=== PATIENT | female | born 1955 | race Caucasian/White ===

== ENCOUNTER 2016-06-10 11:30 | Inpatient (IN) | payer MEDICAID ==
[~2016-06-10] VITALS: Ht 170.2 cm; Wt 130.3 kg
--- NOTE | ~2016-06-10 | ECH ---
Transthoracic Echocardiography Report (TTE) Demographics Patient Name JC CAMARGO Date of Study 06/11/2016 Patient Number [id number] Visit Number [id number] Date of 1955 Room Number 404 Accession Number [id number] Gender Female Age 60 year(s) Referring Nicko BUTLER Equipment Lead Cata Yin RUST Physician Jimbo Allen MD Physician Interpreting Kurt [employer] Product Engineer Physician MD Supervising Ordering Physician Reyes Allen MD, MD/P Nurse Stress Application Support Manager Conclusions Summary Technically fair exam. The estimated left ventricular ejection fraction is 60%. Moderate left ventricular hypertrophy. Bubble study was done, there is no evidence for a PFO or ASD. The right atrium is mildly dilated. There is mild aortic stenosis by the Continuity Equation. The peak velocity is 3.14m/s, the mean gradient is 22mmHg, and the valve area based on the continuity equation is 1.5cm2, stroke volume index is 38.6ml/m2. Mild tricuspid regurgitation by color Doppler. There is moderate pulmonary hypertension. The pulmonary pressure (RVSP) is 63 mmHg. The ascending aorta appears mildly dilated. The maximum diameter measures 3.5 cm. Procedure Type of Study TTE procedure:Echo Complete w Contrast SF. Procedure Date Date: 06/11/2016 Start: 09:42 AM Technical Quality: Fair due to body habitus. Indications:Shortness of breath, Pulmonary hypertension and Congestive heart failure. Additional Indications:hypoxia Appropriate Use Criteria: 9 Contrast Medium: Bubble Study. Height: 67 inches Weight: 290 pounds BSA: 2.37 m Rhythm: Within normal limits HR: 67 bpm BP: 116/53 mmHg M-Mode/2D Measurements LV Diastolic Dimension: 3.94 cm LV Systolic Dimension: 2.37 cm LV Septum Diastolic: 1.39 cm LV PW Diastolic: 1.91 cm AO Root Dimension: 2.68 cm Cardiac Output: 6.13 l/min LA Dimension: 4.57 cm Cardiac Index: 2.59 l/min*m RV Diastolic Dimension: 3.85 cm LA volume index: 29 ml/m LVOT: 1.86 cm LVOT VTI: 33.71 cm RV Base: 4.5 cm LV Stroke volume: 91.55 ml RV Mid: 3 cm LV Stroke volume index: 38.63 ml/m RV Length: 7.7 cm Doppler Measurements AV Peak Velocity: 3.14 m/s MV Peak E-Wave: 1.31 m/s AV Peak Gradient: 39.44 mmHg MV Peak A-Wave: 1.14 m/s AV Mean Gradient: 22.37 mmHg MV E/A Ratio: 1.14 LVOT Peak Velocity: 1.46 m/s MV P1/2t: 88.1 msec AV Area (Continuity):1.51 cm MV Deceleration Time: 303.8 msec TR Velocity:3.81 m/s MV Area (PHT): 2.5 cm TR Gradient:58.17 mmHg Estimated RAP:5 mmHg Estimated PASP: 63.17 mmHg Estimated RVSP: 63 mmHg RA Area: 18.58 cm Findings Left Ventricle The left ventricle is normal in size . Moderate to severe left ventricular hypertrophy. Diastolic assessment reveals normal relaxation. Right Ventricle Normal right ventricle structure and function. Left Atrium Normal left atrial size. Bubble study was done, there is no evidence for a PFO or ASD. Right Atrium The right atrium is mildly dilated. Mitral Valve Normal mitral valve structure and function. Mild mitral regurgitation by color Doppler. Mild mitral annular calcification. Aortic Valve The aortic valve was not well imaged but appears sclerotic. There is mild aortic stenosis by the Continuity Equation. The peak velocity is 3.14m/s, the mean gradient is 22mmHg, and the valve area based on the continuity equation is 1.5cm2, stroke volume index is 38.6ml/m2. Tricuspid Valve Normal tricuspid valve structure and function. Mild tricuspid regurgitation by color Doppler. There is moderate pulmonary hypertension. The pulmonary pressure (RVSP) is 63 mmHg. Pulmonic Valve The pulmonic valve is not well visualized. Pericardial Effusion No evidence of pericardial effusion. Miscellaneous The ascending aorta appears mildly dilated. The maximum diameter measures 3.5 cm. Pleural Effusion No evidence of pleural effusion. Contractility Score LV regional wall motion:(0-Non visualized 1-Normal 2-Hypokinesis 3-Akinesis 4-Dyskinesis 5-Aneurysm) Signature
[~2016-06-10 11:30] MED LIST: ALDACTONE DPS25 MG PO; APRESOLINE DPS100 MG PO; BENADRYL-DPS50 MG PO; CATAPRES0.3 MG PO; DEMADEX20 MG PO; IMDUR DPS60 MG PO; JANUVIA100 MG PO; LANTUS100 UNITS/ SQ; LOPRESSOR DPS100 MG PO; MAALOX DPS30 ML PO; MICRONASE DPS5 MG PO; NORVASC DPS10 MG PO; PRAVACHOL40 MG PO; SURFAK DPS240 MG PO; TEARS NATURAL D15 ML OU; TYLENOL DPS325 MG PO; TYLENOL EXTRA500 M1 PO
[2016-06-17] MEDS ORDERED: SENOKOT DPS8.6 MG PO (16:54)
[2016-06-17] MEDS ORDERED: ROBITUSSIN100 MG/5 M PO (16:55)
[2016-06-17] MEDS ORDERED: LEVAQUIN DPS500 MG PO (16:56)
[2016-06-17] MEDS ORDERED: DULERA 100/58.8 GM IH (16:56)
[2016-06-17] MEDS ORDERED: NORVASC DPS10 MG PO (16:56)
[2016-06-17] MEDS ORDERED: DELTASONE20 MG PO (16:57)
[2016-06-17] MEDS ORDERED: DELTASONE DPS10 MG PO ×2 (16:57→16:58)
[2016-06-17] MEDS ORDERED: DUONEB DPS3 ML IH (16:57)
--- NOTE | 2016-06-24 12:30 | HP ---
ADMIT: 06/10/2016 RM/LOC: 404 [facility] MR#: [id number] [address] [place], [place] [address] JC CAMARGO [address] [place] [address] History and Physical SEX: F AGE: 60 : 1955 DATE OF SERVICE: CHIEF COMPLAINT: Shortness of breath and hypoxia. HISTORY OF PRESENT ILLNESS: The patient is a 60-year-old single white female, followed in the [facility], who presented with shortness of breath for the last 4-5 days with just generalized fatigue. She denies any chest pain, palpitations. Denies any cough, fevers, chills, sputum production, or infectious symptoms. She does state she is short of breath. PAST MEDICAL HISTORY: Includes eye surgeries for cataracts, retinal detachment, back surgery in 1979, EGDs, 4 upper GI bleed along with diabetic retinopathy surgeries. Illnesses include congestive heart failure which is chronic diastolic, benign essential hypertension, hyperlipidemia, degenerative joint disease of lumbosacral spine, sleep apnea, managed with CPAP, obesity, retinal neovascularization, and diabetes mellitus type 2 with diabetic retinopathy. MEDICATIONS: On admission include: 1. Lantus 40 units daily. 2. Torsemide 20 mg b.i.d. 3. Spironolactone 50 mg daily. 4. Amlodipine 10 mg daily. 5. Catapres 0.3 mg b.i.d. 6. Glyburide 5 mg b.i.d. 7. Hydralazine 100 mg t.i.d. 8. Isordil extended release 60 mg daily. 9. Januvia 100 mg daily. 10.Lopressor 100 mg b.i.d. 11.Pravachol 40 mg at bedtime along with Natural Tears. 12.PRN Surfak and Benadryl. ALLERGIES: INCLUDE DARVOCET AND PENICILLIN. SOCIAL HISTORY: Is that of a 60-year-old, disabled white female. She is single, never been , has no children. She does not smoke and has never smoked or drank significant alcohol. REVIEW OF SYSTEMS: Remarkable for chronic eye problems, her morbid exogenous obesity, her chronic dyspnea, and some chronic arthritis in her back. Remainder of review of systems is negative. PHYSICAL EXAMINATION: VITAL SIGNS: Include blood pressure of 132/62, weight of 289 pounds, pulse of 79. Note her weight 3 months ago was 288. O2 saturation was 79% on room air. Multiple attempts were noted. Highest O2 saturation obtained was 82%. Heart rate was 79, temperature 97.9, with a height of 66 inches, and a BMI of 46.6. GENERAL: Exam shows her to be alert. She is in no acute distress. HEENT: Pupils are reactive. Membranes are moist. ADMIT: 06/10/2016 RM/LOC: 404 [facility] MR#: [id number] [address] [address] [facility] [address] [place] [address] History and Physical SEX: F AGE: 60 : 1955 NECK: Supple. HEART: Regular without murmur. LUNGS: Clear with diminished breath sounds, poor inspiratory effort. ABDOMEN: Morbidly obese and nontender. BREASTS: Deferred. GENITOURINARY: Deferred. RECTAL: Deferred. EXTREMITIES: Reveal trace to 1+ edema without clubbing or cyanosis. NEUROLOGIC: Grossly normal including light touch, strength, DTRs. IMAGING DATA: Chest x-ray shows some borderline cardiomegaly with a possible nodule in the right upper lobe. ASSESSMENT: Dyspnea with hypoxia. Rule out exacerbation of her chronic diastolic heart failure. Rule out acute pulmonary embolism or other pathology. Other problems include: 1. Diabetes mellitus type 2 with diabetic retinopathy. 2. Exogenous obesity. 3. Sleep apnea. 4. Degenerative joint disease of lumbosacral spine. 5. Hyperlipidemia. 6. Benign essential hypertension. PLAN: She was admitted to [place]. We will obtain a CTA of the chest. We will proceed based on results. Baseline labs were additionally ordered. No evidence of any acute infectious process is noted at this time. I suspect exacerbation of her chronic diastolic heart failure versus DVTs with pulmonary embolisms. We will proceed based on laboratory workup and findings. Oxygen is placed and DuoNebs are ordered. Accu-Chek monitoring, sliding scale ordered. We will continue with her current medications. Julio Chambers MD/ daniel JOB #: [id number] CC: Julio Chambers, Attending Physician Julio Chambers, Family Physician
--- NOTE | 2016-07-16 14:20 | CO ---
ADMIT: 06/10/2016 RM/LOC: 404 [facility] MR#: [id number] [address] [address] JC CAMARGO [address] [place] [address] Consultation SEX: F AGE: 60 : 1955 DATE OF CONSULTATION: 06/11/2016 ATTENDING PHYSICIAN: Julio Chambers CONSULTING PHYSICIAN: Jimbo Maharaj MD REASON FOR CONSULTATION: Shortness of breath and hypoxemia. HISTORY OF PRESENT ILLNESS: The patient is a pleasant 60-year-old, female, known to [facility] with no history of coronary artery disease. She has a history of diastolic heart failure, pulmonary hypertension, mild aortic stenosis. She was admitted with decompensated heart failure in April of 2015, which was when we did our initial evaluation. Her creatinine is mildly elevated per baseline. Last we saw her was in November of 2015, at that time, she was doing quite well. Unfortunately, over the last week, she has developed a cough. This is nonproductive. She states that she has not had any fevers but has had some chills. She denies any chest pain, tightness, or heaviness. She has had shortness of breath. She denies any lower extremity edema or any changes in her sleeping pattern. She does wear CPAP for her obstructive sleep apnea. She has not had any weight gain. When she came into the office to see her primary care, her oxygen saturations were 79%. PAST MEDICAL HISTORY: Type 2 diabetes; cataracts, right removed, left is not ready to be removed yet; diabetic retinopathy; diabetic nephropathy; and diabetic neuropathy; diastolic heart failure; hypertension; hyperlipidemia; obstructive sleep apnea; obesity; degenerative joint disease; peptic ulcer disease. PAST SURGICAL HISTORY: Multiple eye surgeries, back surgery, cataract extraction, and tonsillectomy. REVIEW OF SYSTEMS: GENERAL: Denies any fevers but has had some chills. EYES: She has had cataracts, right removed, left is not ready to be removed yet. 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 ENT: Denies hearing loss or problems with nose, mouth or throat. PULMONARY: She does have obstructive sleep apnea, wears her CPAP at night. She wears oxygen bled into this. No history of COPD. GASTROINTESTINAL: She has a history of peptic ulcer disease. GENITOURINARY: Denies dysuria, hematuria, nocturia, urinary tract infection, or kidney stones. Denies history of renal insufficiency or failure. MUSCULOSKELETAL: Denies history of arthritis or gout. Denies muscle or joint pains. ENDOCRINE: She has diabetic neuropathy and nephropathy. HEMATOLOGIC: Denies history of anemia, easy bruising, or cancer. NEUROLOGIC: Denies chronic headaches, dizziness, syncope, stroke, seizures or numbness or tingling. PSYCHIATRIC: Denies history of mental illness or feelings of depression. ADMIT: 06/10/2016 RM/LOC: 404 [facility] MR#: [id number] [id number] [address] [facility] [address] [facility] [place] [address] Consultation SEX: F AGE: 60 : 1955 SOCIAL HISTORY: She is disabled. 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 She is single. She has never smoked. FAMILY HISTORY: Grandmother had a stroke. Father had a myocardial infarction and mom had Alzheimer disease. PHYSICAL EXAMINATION: VITAL SIGNS: Per Dr. Jimbo Maharaj; temp 98.3, pulse 62, respirations 20, blood pressure 160/53, O2 saturation 90%. SKIN: [place], warm and dry. EYES: Sclerae clear. No xanthelasmas. ENT: Oral mucosa is pink and moist. No carotid bruits. JVP difficult to visualize. HEART: Regular rate and rhythm. 2/6 systolic ejection murmur. Distant heart sounds. LUNGS: Inspiratory and expiratory wheezes. ABDOMEN: Obese. MUSCULOSKELETAL: Gait is normal. EXTREMITIES: Trace edema. PSYCHIATRIC: Alert and oriented. Mood and affect are appropriate. MEDICATIONS: She is currently taking include: 1. Apresoline 100 mg p.o. t.i.d. 2. Benadryl 50 mg p.o. b.i.d. 3. Catapres 0.3 mg p.o. b.i.d. 4. Demadex 20 mg p.o. b.i.d. 5. Imdur 60 mg p.o. daily. 6. Januvia 100 mg p.o. daily. 7. Lopressor 100 mg p.o. b.i.d. 8. Micronase 5 mg p.o. b.i.d. 9. Norvasc 10 mg p.o. daily. 10.Pravachol 40 mg p.o. at bedtime. 11.Senokot 8.6 p.o. daily. 12.Spironolactone 50 mg p.o. daily. 13.Tylenol 1000 mg p.o. b.i.d. 14.DuoNeb 3 mL q.i.d. 15.Lovenox. 16.NovoLog. ALLERGIES: DARVOCET AND PENICILLIN, ACETAMINOPHEN AND ADHESIVE TAPE. ASSESSMENT: Per Dr. Maharaj: 1. Hypoxemia. 2. History of diastolic heart failure. 3. Obstructive sleep apnea. 4. Obesity. ADMIT: 06/10/2016 RM/LOC: 404 [facility] MR#: [id number] [address] [address] JC CAMARGO [address] [place] [address] Consultation SEX: F AGE: 60 : 1955 5. Diabetes. PLAN: Per Dr. Maharaj, her chest x-ray and CTA did not appear to be heart failure and by exam, she does not appear to be in heart failure. We will recommend doing an echocardiogram with bubbles to assess for shunting due to her hypoxia and pulmonary hypertension. She may benefit from a Pulmonary consult as of now, the patient to assess workup for pulmonary hypertension. She does have multiple risk factors for pulmonary hypertension including diastolic heart failure, obesity, and obstructive sleep apnea. We will continue to monitor symptoms and diagnostics, amend our plan accordingly. Thank you for allowing us to participate in care of this patient. LUBA Campbell / Jimbo Maharaj MD / daniel JOB #: [id number] CC: Julio Chambers, Attending Physician Julio Chambers, Family Physician
--- NOTE | 2016-08-02 12:04 | DS ---
ADMIT: 06/10/2016 RM/LOC: 630 [facility] MR#: [id number] [id number] [place], [place] [address] JC CAMARGO [address] [place] [address] General Discharge Summary SEX: F AGE: 60 : 1955 ADMISSION DATE: 06/10/2016 DISCHARGE DATE: 06/16/2016 INDICATION FOR HOSPITALIZATION: Jc is a 60-year-old white female, well known to myself, admitted to [facility] through the [facility] with dyspnea, generalized fatigue, and general malaise. Ultimately, concerns regarding diastolic heart failure versus an underlying primary pulmonary disease were noted. She was admitted with hypoxia, for further evaluation, and management. CTA of the chest was ordered in the ER. Please see her admission H and P for further details. HOSPITAL COURSE: On admission, a CTA of the chest and chest x-ray were ordered. Venous Dopplers were additionally ordered. Routine labs and appropriate monitoring were ordered. She was started on diabetic diet with Accu-Check monitoring sliding scale. An echocardiogram, EKG, cardiac enzymes, and cardiology consult were ordered on the . It was felt by Cardiology that her symptoms were mainly pulmonary in origin. Appropriate treatment for lung disease was initiated. IV antibiotics were started for left lower lobe pneumonia on June 13. The patient was taken off tele, and PET scan was to be ordered , and ultimately, she was discharged that day. DISCHARGE MEDICATIONS: Include: 1. Apresoline 100 mg t.i.d. 2. Benadryl 50 mg b.i.d. 3. Catapres 0.3 mg b.i.d. 4. Deltasone 40 mg daily with appropriate taper. 5. Demadex 20 mg b.i.d. 6. Imdur 60 mg daily. 7. Januvia 100 mg daily. 8. Lopressor 100 mg b.i.d. 9. Micronase 5 mg b.i.d. 10.Norvasc 10 mg daily. 11.Pravachol 40 mg at bedtime. 12.Senokot daily. 13.Spironolactone 50 mg daily. 14.Tylenol 1000 mg b.i.d. 15.Dulera 2 puffs b.i.d. 16.DuoNeb q.i.d. 17.[place] mist nasal spray at bedtime. 18.Natural tears q.i.d. 19.Levemir 40 units daily. 20.P.r.n. Robitussin and Surfak. She was discharged on Levaquin 500 mg daily for 3 more days with appropriate followup in the Family Practice Clinic. LABORATORY AND X-RAY DATA: Include June 10; white count of 11.6, hemoglobin of 12.5, and a platelet count of 251,000. On June 16; sodium of 138, potassium 4.2, BUN of 42, creatinine 1.5 with glucose 122. On May ADMIT: 06/10/2016 RM/LOC: 630 [facility] MR#: [id number] [address] [address] JC CAMARGO [address] [place] [address] General Discharge Summary SEX: F AGE: 60 : 1955 ; sodium 137, potassium 4.7, BUN of 38 with a creatinine 1.7 and glucose 239. CPKs with MB and troponin Is were fairly unremarkable. Sugar monitor was undertaken. Hemoglobin A1c on June 12 was 9.3. Alpha-1 antitrypsin was 236 on June 12. CTA on June 10 shows no pulmonary embolism with basilar atelectasis, right upper lobe nodules, and subcarinal enlarged lymph nodes with hepatomegaly, probable fatty liver. Chest x-ray on June 13, shows left lower lobe pneumonia, resolved on June 14. Venous Doppler on June 10 was negative. Echocardiogram on June 11 shows ejection fraction of 60%, no patent foramen ovale or ASD, moderate pulmonary hypertension. EKG shows sinus rhythm. FINAL DISCHARGE DIAGNOSES: Include: 1. Left lower lobe pneumonia. 2. Chronic obstructive pulmonary disease exacerbation with hypoxia. 3. Diabetes mellitus type 2 with diabetic retinopathy. 4. Diastolic heart failure. 5. Exogenous obesity. 6. Sleep apnea. 7. Degenerative joint disease. 8. Chronic kidney disease. 9. Hyperlipidemia. 10.Benign essential hypertension. 11.Elevated alpha-1 antitrypsin. PROCEDURES: Include IV antibiotics, steroids, and nebulizers along with CTA, venous Dopplers, and echocardiogram. Please see her hospital record for the details. Julio Chambers MD/ daniel JOB #: [id number] CC: Julio Chambers MD, Attending Physician Julio Chambers MD, Family Physician
== END 2016-06-16 17:35 | disposition home or self-care (01) | DRG 190 ==
LOC: WOR 11:30 → 4PCU 11:30 → 6PED 11:30 → 4PCU 15:28 → 6PED 06-13 21:10
PROVIDERS: ADMIT Family Medicine
DX: J44.1 Chronic obstructive pulmonary disease with (acute) exacerbation (principal); J18.9 Pneumonia, unspecified organism; J96.91 Respiratory failure, unspecified with hypoxia; I27.2 Other secondary pulmonary hypertension; I13.0 Hypertensive heart and chronic kidney disease with heart failure and stage 1 through stage 4 chronic kidney disease, or unspecified chronic kidney disease; I50.32 Chronic diastolic (congestive) heart failure; E11.21 Type 2 diabetes mellitus with diabetic nephropathy; Z68.42 Body mass index [BMI] 45.0-49.9, adult; J98.11 Atelectasis; J44.0 Chronic obstructive pulmonary disease with (acute) lower respiratory infection; R16.0 Hepatomegaly, not elsewhere classified; J45.909 Unspecified asthma, uncomplicated; Z23 Encounter for immunization; E78.5 Hyperlipidemia, unspecified; M51.37 Other intervertebral disc degeneration, lumbosacral region; E66.01 Morbid (severe) obesity due to excess calories; E11.319 Type 2 diabetes mellitus with unspecified diabetic retinopathy without macular edema; E11.40 Type 2 diabetes mellitus with diabetic neuropathy, unspecified; G47.33 Obstructive sleep apnea (adult) (pediatric); M19.90 Unspecified osteoarthritis, unspecified site; N18.3 Chronic kidney disease, stage 3 (moderate); R91.8 Other nonspecific abnormal finding of lung field; E11.22 Type 2 diabetes mellitus with diabetic chronic kidney disease; Z87.11 Personal history of peptic ulcer disease; Z79.4 Long term (current) use of insulin